=== PATIENT | male | born 1965 | race Caucasian/White ===

== ENCOUNTER 2016-12-28 22:14 | Emergency (ER) ==
[2016-12-28] MEDS ORDERED: SODIUM CHLORIDE 1,000 ML IV STA (22:15)
[2016-12-28] MEDS ORDERED: ASPIRIN CHEWABLE PO STA (22:16)
[2016-12-28] MEDS ORDERED: NITROSTAT SL STA (22:16)
[2016-12-28 22:19] VITALS: BP 180/120; TEMP 98.6; BMI 26.6
--- NOTE | 2016-12-28 22:22 | ED.PDOC ---
General ED Provider: Dr. STANLEY DAVE-ER Chief Complaint: Chest Pain Stated Complaint: robert been having chest pain Time Seen by Physician: 22:20 Mode of Arrival: Walk-In Information Source: Patient, Family Exam Limitations: No limitations Nursing and Triage Documentation Reviewed and Agree: Yes Cardiovascular Complaint Exam - Chest Pain Complaint/Exam Onset: Gradual Duration: 4hrs Symptoms Are: Still present Timing: Constant Initial Severity: Mild Current Severity: Mild Location: Reports: Diffuse Character: Reports: Dull, Aching, Heaviness, Pressure Alleviating: Reports: None Associated Signs and Symptoms: Denies: Diaphoresis, Nausea, Vomiting, Fever, Palpitations, Cough, Hemoptysis, Back pain, Abdominal pain, Dizziness, Short of air, Calf pain, Calf swelling Related Surgical History: Reports: None History of Healthcare-Acquired Pneumonia: Reports: No AMI/ACS Risk Factors: Reports: None TAD Risk Factors: Reports: None Pulmonary Embolism Risk Factors: Reports: None Prior Care for this Complaint: Yes Recent Stress Test: No Recent Echo/LV Function: No JVD Present: No Subcutaneous Emphysema Present: No Diminshed Breath Sounds: No Reproducible Chest Wall Pain: No Bilateral Pulses Present: Yes Unequal Pulses Noted: No If Risk Factors for AMI/ACS Consider: EKG Differential Diagnoses: Acute OK, Stable Angina Quality Indicators For Acute OK or Cardiac Chest Pain: EKG in 10min. Review of Systems - Review Of Systems Constitutional: Reports: No symptoms Eyes: Reports: No symptoms Ears, Nose, Mouth, Throat: Reports: No symptoms Respiratory: Reports: No symptoms Cardiac: Reports: Chest pain GI: Reports: No symptoms : Reports: No symptoms Musculoskeletal: Reports: No symptoms Skin: Reports: No symptoms Neurological: Reports: No symptoms Endocrine: Reports: Intolerance to heat Hematologic/Lymphatic: Reports: No symptoms All Other Systems: Reviewed and Negative Past Medical History - Past Medical History Endocrine: Reports: Unknown Cardiovascular: Reports: Unknown Respiratory: Reports: Unknown Hematological: Reports: Unknown Gastrointestinal: Reports: Unknown Genitourinary: Reports: Unknown Neuro/Psych: Reports: Unknown Musculoskeletal: Reports: Unknown Cancer: Reports: Unknown - Surgical History General Surgical History: Reports: Unknown - Family History Family History: Reports: Unknown - Social History Smoking Status: Never smoker Hx Substance Use: No Alcohol Screening: Occasionally Lives: With family - Immunizations Tetanus Shot up to Date: No Physical Exam - Physical Exam Appearance: Well-appearing, No pain distress, Well-nourished Pain Distress: Moderate Eyes: ARIAS, EOMI, Conjunctiva clear ENT: Ears normal, Nose normal, Oropharynx normal Neck: Supple Respiratory: Airway patent, Breath sounds clear, Breath sounds equal, Respirations nonlabored Cardiovascular: RRR, Pulses normal, No rub, No murmur GI/: Soft, Nontender, No masses, Bowel sounds normal, No Organomegaly Musculoskeletal: Normal strength, ROM intact, No edema, No calf tenderness Skin: Warm, Dry, Normal color Neurological: Sensation intact, Motor intact, Reflexes intact, Cranial nerves intact, Alert, Oriented Psychiatric: Affect appropriate Re-Evaluation - Re-Evaluation Time of Re-Evaluation: 22:22 Status: Improved Vital Signs Stable: Yes Pain Level: 0 Appearance: NAD Lungs: Clear Skin: Warm and Dry Neuro: Alert and Oriented X3 CV: RRR Physician Notification - Case Discussed Physician Notified: dr saucedo--agreed to accept Time of Notification: 22:38 Critical Care Note - Critical Care Note Total Time (mins): 0 Course - Course Hematology/Chemistry: 12/28/16 22:28 Orders, Labs, Meds: Lab Review 12/28/16 22:28 WBC 12.23 H RBC 5.04 Hgb 15.6 Hct 45.2 MCV 89.7 MCH 31.0 MCHC 34.5 RDW Coeff of Yemi 13.0 Plt Count 259 Immature Gran % (Auto) 0.4 Neut % (Auto) 70.2 Lymph % (Auto) 22.5 [place] % (Auto) 6.0 Eos % (Auto) 0.7 Baso % (Auto) 0.2 Immature Gran # (Auto) 0.1 Neut # 8.6 H Lymph # 2.8 [place] # 0.7 Eos # 0.1 Baso # 0.0 Orders Category Date Time Status EKG-(ED ONLY) Stat CARDIO 12/28/16 22:15 Ordered EKG-(ED ONLY) Stat CARDIO 12/28/16 22:26 Ordered TRANSFER TO OUTSIDE FACILITY .TO [facility] 12/28/16 22:23 Active ([facility]) WRITE TRANSFER/SBAR NOTE ONCE CARE 12/28/16 22:23 Completed DISCHARGE ASSESSMENT ONCE DISCHARGE 12/28/16 22:23 Completed WRITE DISCHARGE NOTE ONCE DISCHARGE 12/28/16 22:23 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[employer]] .ONCE EMERGENCY 12/28/16 22:17 Active IV [ED IV/MEDIPORT/POWERPORT] .ONCE EMERGENCY 12/28/16 22:15 Active AMYLASE Stat LAB 12/28/16 22:28 Received CBC W/ AUTO DIFF Stat LAB 12/28/16 22:28 Completed COMPREHENSIVE METABOLIC PANEL Stat LAB 12/28/16 22:28 Received CREATINE KINASE Stat LAB 12/28/16 22:28 Received LIPASE Stat LAB 12/28/16 22:28 Received TROPONIN I Stat LAB 12/28/16 22:28 Received 0.9 % Sodium Chloride [Saline Flush] MEDS 12/28/16 22:15 Ordered 1 syr IVF PRN PRN Aspirin [Aspirin Chewable] MEDS 12/28/16 22:16 Discontinued 324 mg PO ONCE STA Nitroglycerin [Nitrostat] MEDS 12/28/16 22:16 Discontinued 0.4 mg SL ONCE STA Sodium Chloride 0.9% [Sodium Chloride] 1,000 ml MEDS 12/28/16 22:15 Active IV 100 mls/hr CXR [CHEST, 1V AP ONLY] Stat RADS 12/28/16 22:16 Taken Medications Generic Name Dose Route Start Last Admin Trade Name Freq PRN Reason Stop Dose Admin Sodium Chloride 1,000 mls @ 100 mls/hr 12/28/16 22:15 12/28/16 22:33 Sodium Chloride IV 12/29/16 08:14 100 mls/hr .Q10H STA Administration Sodium Chloride 1 syr 12/28/16 22:15 Saline Flush IVF PRN PRN To flush IV Discontinued Medications Generic Name Dose Route Start Last Admin Trade Name Freq PRN Reason Stop Dose Admin Aspirin 324 mg 12/28/16 22:16 12/28/16 22:29 Aspirin Chewable PO 12/28/16 22:17 324 mg ONCE STA Administration Nitroglycerin 0.4 mg 12/28/16 22:16 12/28/16 22:29 Nitrostat SL 12/28/16 22:17 0.4 mg ONCE STA Administration Vital Signs: Temp Pulse Resp BP Pulse Ox 12/28/16 22:15 98.6 F 86 12 180/120 H 94 L BIMAL Risk Score BIMAL Risk Score: Risk Score Odds of by 30D 0 0.1 (0.1-0.2) 1 0.3 (0.2-0.3) 2 0.4 (0.3-0.5) 3 0.7 (0.6-0.9) 4 1.2 (1.0-1.5) 5 2.2 (1.9-2.6) 6 3.0 (2.5-3.6) 7 4.8 (3.8-6.1) Departure - Departure Time of Disposition: 22:22 Disposition: TSF SHORT-TRM HOSP Discharge Problem: Chest pain Instructions: Chest Pain (ED) Condition: Good Pt referred to PMD for follow-up: No Allergies/Adverse Reactions: Allergies codeine Allergy (Severe, Unverified 12/28/16 22:33) stomach pain, nausea Home Medications: Ambulatory Orders 1 [No Reported Medications] 12/28/16 Transfer Form Completed: Yes Disposition Discussed With: Patient, Family
[2016-12-28 22:29] LABS: BASOPHILS % (AUTO) 0.2 % (0.0-3.0); EOSINOPHILS # (AUTO) 0.1 K/ul (0.0-0.7); EOSINOPHILS % (AUTO) 0.7 % (0.0-7.0); HEMATOCRIT 45.2 % (42.0-52.0); HEMOGLOBIN 15.6 g/dl (14.0-18.0); IMMATURE GRANULOCYTE % (AUTO) 0.4 % (0.0-5.0); LYMPHOCYTES # (AUTO) 2.8 K/uL (0.60-3.4); LYMPHOCYTES % (AUTO) 22.5 (10.0-50.0); MEAN CORPUSCULAR HGB CONC 34.5 (31.8-35.4); MEAN CORPUSCULAR VOLUME 89.7 fl (80.0-94.0); MONOCYTES # (AUTO) 0.7 K/uL (0.4-2.0); NEUTROPHILS # (AUTO) 8.6 K/ul (2.0-6.9); NEUTROPHILS % (AUTO) 70.2; PLATELET COUNT 259 10^3/uL (140-440); RED BLOOD COUNT 5.04 10^6/ul (4.70-6.10); WHITE BLOOD COUNT 12.23 K/ul (4.2-10.2)
[2016-12-28 23:20] LABS: ALBUMIN 4.3 g/dL (3.4-5.0); ALBUMIN/GLOBULIN RATIO 1.3; ANION GAP 16.4; BILIRUBIN,TOTAL 0.44 mg/dL (0.00-1.20); CALCIUM 9.2 mg/dL (8.2-10.2); POTASSIUM 3.4 mmol/L (3.5-5.1); TOTAL PROTEIN 7.6 g/dL (6.4-8.2)
[2016-12-28 23:21] LABS: TROPONIN I 0.904 ng/ml (0.0000-0.4000)
--- NOTE | 2016-12-29 01:06 | DI ---
EXAM: Chest, single view 12/28/2016 HISTORY: Chest pain COMPARISON: 05/07/2011 FINDINGS / IMPRESSION: Cardiomediastinal contours appear within normal limits. There is no focal p ulmonary consolidation, effusion or pneumothorax. No acute cardiopulmonary process.
== END 2016-12-28 22:42 | disposition short-term general hospital (02) ==
LOC: ED 22:14
DX: R07.9 Chest pain, unspecified (principal)
CPT/HCPCS: 36415; 80053; 82150; 82550; 82553; 83690; 84484; 85025; 93005; 93010; 99285

== ENCOUNTER 2016-12-28 22:55 | Outpatient (CLI) ==
[2016-12-28 22:19] VITALS: BMI 26.6
== END 2016-12-28 22:56 | disposition home or self-care (01) ==
LOC: AMBL 22:55
PROVIDERS: ATTEND Family Medicine
DX: R07.9 Chest pain, unspecified (principal); R94.31 Abnormal electrocardiogram [ECG] [EKG]; R03.0 Elevated blood-pressure reading, without diagnosis of hypertension